=== PATIENT | female | born 2000 | race Two or more races ===

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

== ENCOUNTER 2019-10-18 18:03 | Emergency (ER) | payer MEDICAID, OTHER ==
[2019-10-18 19:38] LABS: Influenza A Molecular Negative (Negative); Influenza B Molecular Negative (Negative)
[2019-10-18] MEDS ORDERED: Fluticasone NASAL SPRAY 50MCG* 16 gm SPRAY BTL BOTH NARES ONE (19:40)
--- NOTE | 2019-10-18 19:40 | ED ---
Throat Pain/Nasal Congestion - HPI Summary HPI Summary: 19 year old female presents with sinus congestion for the 4 days. She denies any sinus pressure. No headache. No cough. No sore throat. No ear pain. she has been using TheraFlu. No medical conditions. No history of sinus infections. no chest pain or shortness breath. No nausea vomiting. Has no medical conditions. - History of Current Complaint Chief Complaint: EDFluSymptoms Time Seen by Provider: 10/18/19 18:58 - Allergies/Home Medications Allergies/Adverse Reactions: Allergies Allergy/AdvReac Type Severity Reaction Status Date / Time No Known Allergies Allergy Verified 12/14/17 12:19 PMH/Surg Hx/FS Hx/Imm Hx Endocrine/Hematology History: Denies: Hx Diabetes Cardiovascular History: Denies: Hx Coronary Artery Disease, Hx Hypertension Infectious Disease History: No Infectious Disease History: Denies: Traveled Outside the [place] in Last 30 Days - Family History Known Family History: Positive: Diabetes Negative: Cardiac Disease, Hypertension - Social History Alcohol Use: Occasionally Hx Substance Use: No Substance Use Type: Reports: Marijuana Hx Tobacco Use: No Smoking Status (MU): Never Smoked Tobacco Review of Systems Negative: Fever Positive: Nasal Discharge Negative: Chest Pain Negative: Shortness Of Breath All Other Systems Reviewed And Are Negative: Yes Physical Exam Triage Information Reviewed: Yes Vital Signs On Initial Exam: Initial Vitals Temp Pulse Resp BP Pulse Ox 97.3 F 70 16 117/78 99 10/18/19 18:06 10/18/19 18:06 10/18/19 18:06 10/18/19 18:06 10/18/19 18:06 Vital Signs Reviewed: Yes Appearance: Positive: Well-Appearing Skin: Positive: Warm, Dry Head/Face: Positive: Normal Head/Face Inspection Eyes: Positive: Normal, EOMI, JARROD, Conjunctiva Clear ENT: Positive: Pharynx normal, TMs normal, Sinus tenderness Respiratory/Lung Sounds: Positive: Clear to Auscultation, Breath Sounds Present Cardiovascular: Positive: Normal, RRR Musculoskeletal: Positive: Normal Neurological: Positive: Normal Psychiatric: Positive: Normal Procedures - Sedation Patient Received Moderate/Deep Sedation with Procedure: No Diagnostics - Vital Signs Vital Signs Temp Pulse Resp BP Pulse Ox 10/18/19 18:06 97.3 F 70 16 117/78 99 - Laboratory Lab Results: Lab Results 10/18/19 Range/Units 19:12 Influenza A (Rapid) Negative (Negative) Influenza B (Rapid) Negative (Negative) Lab Statement: Any lab studies that have been ordered have been reviewed, and results considered in the medical decision making process. EENT Course/Dx - Course Course Of Treatment: 19 year old female presents with sinus congestion for the 4 days. She denies any sinus pressure. No headache. No cough. No sore throat. No ear pain. she has been using TheraFlu. No medical conditions. No history of sinus infections. no chest pain or shortness breath. No nausea vomiting. Has no medical conditions. On exam sinus congestion noted. No sinus tenderness. Pharynx normal. Lungs auscultation. Discussed likely still viral at this time. flu neg. Will treat with Flonase. Told if symptoms persist for 3 more days to start the antibiotic which sent to the pharmacy. Patient understands and agrees with the plan. - Differential Diagnoses Differential Diagnoses: Pharyngitis, Sinusitis, URI/Bronchitis - Diagnoses Provider Diagnoses: Rhinosinusitis Discharge ED - Sign-Out/Discharge Documenting (check all that apply): Patient Departure - Discharge Plan Condition: Good Disposition: HOME Prescriptions: Amoxicillin/Clavulanate TAB* [Augmentin TAB 875*] 875 mg PO BID #14 tab Patient Education Materials: Rhinosinusitis (ED) Referrals: No Primary Care Phys,NOPCP [Primary Care Provider] - Additional Instructions: Use saline spray in nose as much as needed Use intranasal steroid one spray each nostril twice a day Take antibiotic in 3 days if no improvement, take twice a day for 7 days Take Tylenol or ibuprofen for headache every 6 hours Follow up with terrell Return to ED if develop any new or worsening symptoms - Billing Disposition and Condition Condition: GOOD Disposition: Home
[2019-10-18 19:56] VITALS: BP 110/68
== END 2019-10-18 19:55 | disposition home or self-care (01) ==
LOC: ED 18:03
DX: J32.9 Chronic sinusitis, unspecified (principal)
CPT/HCPCS: 99281